=== PATIENT | male | born 1985 | race Caucasian/White ===

== ENCOUNTER 2017-03-29 14:43 | Emergency (ER) | payer SELFPAY ==
[2017-03-29 14:50] VITALS: BP 130/90
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
== END 2017-03-29 17:14 | disposition home or self-care (01) ==
LOC: ED 14:43
DX: M25.511 Pain in right shoulder (principal)
CPT/HCPCS: 99282